=== PATIENT | male | born 1960 | race Caucasian/White ===

== ENCOUNTER 2021-05-01 05:38 | Emergency (ER) | payer OTHER, BC, SELFPAY ==
[2021-05-01] VITALS (8 sets, daily range): BP systolic 132–161; BP diastolic 76–101; PULSE 60–73; RESP 9–19; TEMP 36.6; O2SAT 96–100
--- NOTE | ~2021-05-01 | XR_ITS ---
EXAMINATION: XR chest 1V portable EXAM DATE: 05/01/2021 07:39 INDICATION: Shoulder pain, Radiates Up Neck Into Back Of Skull. TECHNIQUE: Portable AP frontal chest x-ray was obtained. There is no prior study for comparison. FINDINGS: The lungs are clear. There are no pleural effusions. Cardiomediastinal silhouette is norm al. There is no pneumothorax suspected. 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 IMPRESSION: No acute cardiopulmonary findings. Reviewed, dictated and finalized at location A.
--- NOTE | 2021-05-01 07:26 | ED.GENADULT ---
HPI - General Adult General Chief complaint: Unspecified Stated complaint: right shoulder pain, head pain Time Seen by Provider: 05/01/21 07:25 Source: patient and family Mode of arrival: ambulatory Limitations: no limitations History of Present Illness HPI narrative: Patient 60 years old white male presents with right shoulder pain, right upper back pain radiating to right side of neck. Woke him up at 3 AM. Patient had 3 rotator cuff surgery bilaterally. History of intermittent pain at that area. Patient had a flu vaccine 4 days prior to that at the same side. Patient denies any fever, chills, nausea, vomiting, chest pain, shortness of breath, headache. Related Data Home Medications Medication Instructions Recorded Confirmed metformin mg 05/01/21 simvastatin mg 05/01/21 Allergies Allergy/AdvReac Type Severity Reaction Status Date / Time No Known Allergies Allergy Unknown Verified 05/01/21 05:50 Review of Systems Review of Systems: CONSTITUTIONAL: Denies fever, chills, or sweats. EYES: Denies visual changes, redness, or discharge. ENT: Denies rhinorrhea, congestion, sore throat, or otalgia. CARDIOVASCULAR: Denies chest pain, palpitations, or edema. RESPIRATORY: Denies cough or dyspnea. GASTROINTESTINAL: Denies abdominal pain, nausea, vomiting, or diarrhea. GENITOURINARY: Denies dysuria or hematuria. SKIN: Denies rash or itching. MUSCULOSKELETAL: Denies back pain, joint pain, or myalgia. NEUROLOGIC: Denies headache, numbness, or weakness. PSYCHIATRIC: Denies anxiety or depression. [facility] Family History Family History Father Hypertension Family history of diabetes mellitus in first degree relative Family history of coronary artery disease Family history of kidney disease Mother Family history of diabetes mellitus in first degree relative Family history of malignant neoplasm of ovary Social History Social History Smoking end date: 07/20/03 Alcohol intake: current Exam Narrative: General appearance: Well-developed, well-nourished Skin: Normal color Head: Normocephalic, nontraumatic Eyes: Clear conjunctiva ENT: Oropharynx normal, ears normal, nose normal Neck: Supple, nontender Chest and respiratory: Airway patent, no respiratory distress, no accessory muscle use Heart: Regular rate/rhythm Abdomen: Soft, nontender, no organomegaly, quiet bowel sounds Vascular: Normal peripheral pulses, normal capillary refill. Musculoskeletal: Diffuse tenderness of the right upper back, right shoulder, pain with moving right upper extremity. No swelling, no rash, no mass. Neurologic: Alert and oriented ?3, [employer] is normal as tested, no gross motor deficit Course Course Emergency Course: Improving Vital Signs Vital signs: Vital Signs Temperature 36.6 C 05/01/21 05:47 Pulse Rate 65 05/01/21 05:47 Respiratory Rate 12 05/01/21 05:47 Blood Pressure 149/89 H 05/01/21 05:47 Pulse Oximetry 100 05/01/21 05:47 Temperature 36.6 C 05/01/21 05:47 Pulse Rate 65 05/01/21 05:47 Respiratory Rate 12 05/01/21 05:47 Blood Pressure 149/89 H 05/01/21 05:47 Pulse Oximetry 100 05/01/21 05:47 Medical Decision Making [facility] Narrative Medical decision making narrative: Musculoskeletal is my concern Vital Signs Vital Signs: Vital Signs Temperature 36.6 C 05/01/21 05:47 Pulse Rate 65 05/01/21 05:47 Respiratory Rate 12 05/01/21 05:47 Blood Pressure 149/89 H 05/01/21 05:47 Pulse Oximetry 100 05/01/21 05:47 Temperature 36.6 C 05/01/21 05:47 Pulse Rate 65 05/01/21 05:47 Respiratory Rate 12
--- NOTE | 2021-05-01 07:27 | ECG_ITS ---
Measurements Intervals [place] Rate: 63 P: 27 WA: 145 QRS: -15 QRSD: 105 T: 15 QT: 404 QTc: 414 Interpretive Statements SINUS RHYTHM MINIMAL Q WAVES- INFERIOR LEADS BASELINE ARTIFACT- I, II, III, AVR, AVL, AVF, V1-V6 BORDERLINE ECG Electronically Signed On 05-01-2021 8:08:55 CDT by Siva Starkey D.O.
[2021-05-01 08:11] LABS: Basophils Percent Auto 0.5 % (0.2-1.2); Eosinophils Absolute Auto 0.1 K/mm3 (0-0.3); Eosinophils Percent Auto 1.7 % (0-4.4); Hematocrit 45.9 % (42.0-52.0); Hemoglobin 15.6 g/dL (14.0-18.0); Immature Granulocyte Absolute 0.04 K/mm3 (0.00-0.031); Immature Granulocyte Percent A 0.5 % (0-0.5); Lymphocytes Absolute Auto 1.64 K/mm3 (0.9-3.2); Lymphocytes Percent Auto 20.5 % (18.3-44.2); Mean Corpuscular Hemoglobin 32.6 pg (26-34); Mean Corpuscular Volume 95.8 fl (80-100); Mean Platelet Volume 10.9 fl (7.4-10.4); Monocytes Absolute Auto 0.6 K/mm3 (0.1-0.6); Monocytes Percent Auto 7.6 % (2.6-8.5); Neutrophils Absolute Auto 5.5 K/mm3 (1.3-6.7); Neutrophils Percent Auto 69.2 % (45.5-73.1); Platelet Count Result 188 k/mm3 (150-375); Red Blood Count 4.79 M/mm3 (4.6-6.20); Red Cell Distribution Width 12.5 % (11.5-14.5)
[2021-05-01 08:24] LABS: Alanine Aminotransferase 24 U/L (4-50); Albumin Level 4.7 g/dL (3.5-5.1); Alkaline Phosphatase 80 U/L (38-126); Anion Gap 6 mmol/L (8-16); Aspartate Amino Transferase 26 U/L (17-59); Bilirubin,Total 0.6 mg/dL (0.2-1.3); Blood Urea Nitrogen 15 mg/dL (9-20); Calcium 9.9 mg/dL (8.4-10.2); Carbon Dioxide 27 mmol/L (22-30); Chloride 108 mmol/L (98-107); Estimated CRCL calculation 76 ml/min; Estimated Glomerular Filt Rate > 60; Glucose 139 mg/dL (65-110); Potassium 4.6 mmol/L (3.4-5.0); Sodium 141 mmol/L (137-145)
[2021-05-01 08:36] LABS: Troponin I < 0.012 ng/mL (0.000-0.034)
[2021-05-01] MEDS: ONDANSETRON INJ 4 MG/2 ML VIAL IV PUSH (08:37)
[2021-05-01] MEDS: MORPHINE SULFATE (*CRX) 4 MG/ML INJ IV PUSH (08:38)
== END 2021-05-01 09:43 | disposition home or self-care (01) ==
PROVIDERS: Emergency Provider Emergency Medicine; PCP Nurse Practitioner Family
DX: M54.6 Pain in thoracic spine (principal); Z87.891 Personal history of nicotine dependence
CPT/HCPCS: 36415; 71045; 80053; 84484; 85025; 93005; 96374; 96375; 99284; J2270; J2405

== ENCOUNTER 2022-03-21 09:04 | Outpatient (CLI) | payer BC, SELFPAY | END 2022-03-21 09:05 | disposition home or self-care (01) | LOC: ANHAUDIO 09:05 | PROVIDERS: PCP Nurse Practitioner Family; Visit Provider Nurse Practitioner Family | DX: H90.6 Mixed conductive and sensorineural hearing loss, bilateral (principal) | CPT/HCPCS: 92557; 92567 ==

== ENCOUNTER 2022-04-25 09:00 | Outpatient (RCR) | payer BC, SELFPAY | END 2022-04-25 23:59 | disposition home or self-care (01) | LOC: ANHAUDIO 09:00 | PROVIDERS: PCP Nurse Practitioner Family; Visit Provider Nurse Practitioner Family | DX: Z46.1 Encounter for fitting and adjustment of hearing aid (principal) | CPT/HCPCS: 99199; V5261; V5264 ==

== ENCOUNTER 2024-03-24 15:30 | Outpatient (RCR) | payer SELFPAY | END 2024-03-24 23:59 | disposition home or self-care (01) | LOC: ANHAUDIO 15:30 | PROVIDERS: PCP Nurse Practitioner Family | DX: Z46.1 Encounter for fitting and adjustment of hearing aid (principal) | CPT/HCPCS: 99199; V5264 ==

== ENCOUNTER 2024-06-08 12:00 | Outpatient (RCR) | payer SELFPAY | END 2024-06-08 23:59 | disposition home or self-care (01) | LOC: ANHAUDIO 12:00 | PROVIDERS: PCP Nurse Practitioner Family; Visit Provider Internal Medicine | DX: Z46.1 Encounter for fitting and adjustment of hearing aid (principal) | CPT/HCPCS: V5264 ==

== ENCOUNTER 2024-11-01 07:06 | Outpatient (CLI) | payer MEDICARE, SELFPAY ==
--- NOTE | ~2024-11-01 | US_ITS ---
Ultrasound of the Abdominal Aorta INDICATION: Nicotine dependence TECHNIQUE: Grayscale, color Doppler, and pulsed Doppler images of the aorta and common iliac arteries were obtained. COMPARISON: None. FINDINGS: Maximum vascular dimensions are as follows: Proximal aorta: 2.0 cm Mid aorta: 1.5 cm Distal aorta: 1.4 cm Right common iliac artery: 1.2 cm Left common iliac artery: 0.9 cm There is no evidence of abdominal aortic aneurysm. IMPRESSION: No aortic aneurysm. Reviewed, dictated and finalized at location . IMPRESSION: No aortic aneurysm.
--- OUTSIDE RECORDS SUMMARY | 2024-11-01 07:13 | XMS_ITS | CONTINUITY OF CARE DOCUMENT ---
Author Name dread [place] Address Unknown Organization [facility] Address [address] [place] [address] [address] [place] [address] Phone [phone] Care Team Providers Care Millwright Instructor Name Role Phone Tabatha Corrales MD Unavailable Tabatha Corrales MD Unavailable INSURANCE PROVIDERS Payer name Policy type / Coverage type [place] red democrat ID [facility] [id number]
--- OUTSIDE RECORDS SUMMARY | 2024-11-01 07:13 | XMS_ITS | Clinical Summary ---
Author Organization [facility] Address [address] [place] [id number] Care Team Providers Care Staffing Executive Name Role Phone Unavailable Primary Care Provider Unavailabl e Social History Tobacco Use Types Packs/Day Years Used Date Smoking Tobacco: Never Assessed Sex and Gender Information Value Date Recorded Sex Assigned at Not on file Legal Sex Male 8:09 PM CDT Gender Identity Not on file Sexual Orientation Not on file Plan of Treatment Health Maintenance Due Date Last Done Comments Colorectal Cancer Screening Colonoscopy (10 Years) 1959 Hepatitis C 1977 DTaP, Tdap and Td Vaccines ( 1 - Tdap) 1978 Zoster Vaccines (1 of 2) 2009 COVID-19 Vaccine ( - 2023-2 5 season) 2024 Pneumococcal Vaccine: 50+ Ye ars (1 of 1 - PCV) 2024 RSV Immunization or 60+ Years (1 - 1-dose 75+ series) 2034 Meningococcal B Vaccine Aged Out No l onger eligible based on patient's age to complete this topic Meningococcal Vaccine Aged Out No franko marjorie eligible based on patient's age to complete this topic Pneumococcal Vaccine: Pediat rics (0 to 5 Years) and At-Risk Patients (6 to 49 Years) Aged Out No longer eligible b ased on patient's age to complete this topic RSV Immunizations Under 20 Months Aged Out No longer eligible based on patient's age to complete this topic
== END 2024-11-01 07:07 | disposition home or self-care (01) ==
PROVIDERS: PCP Internal Medicine; Visit Provider Internal Medicine
DX: Z13.6 Encounter for screening for cardiovascular disorders (principal); Z87.891 Personal history of nicotine dependence
CPT/HCPCS: 76706

== ENCOUNTER 2024-12-06 00:13 | Day surgery (SDC) | payer MEDICARE, SELFPAY ==
[2024-11-28 10:41] VITALS: BMI 26.0
--- OUTSIDE RECORDS SUMMARY | 2024-12-06 00:16 | XMS_ITS | Clinical Summary ---
Author Organization [facility] Address [address] [place] [id number] Care Team Providers Care Ict Sales Representative Name Role Phone Unavailable Primary Care Provider [...] Td Vaccines ( 1 - Tdap) 1978 Pneumococcal Vaccine: 50+ Ye ars (1 of 1 - PCV) 2009 Zoster Vaccines (1 of 2) 2009 COVID-19 Vaccine ( - 2023-2 5 season) 2024 RSV Immunization or 60+ Years (1 [...]
[2024-12-06 07:03] VITALS: BP 166/75; PULSE 56; RESP 18; TEMP 36.1; O2SAT 100
--- NOTE | 2024-12-06 07:14 | WPDANESEPPF ---
Anes - Initial Pre Proc Eval Procedure: Operation Date: 12/06/24 08:00 Proposed Procedures p Screening Colonoscopy - Nazario Son MD Date/Time: 12/06/24 07:14 Surgeon: Nazario Son MD Pre Op Diagnosis: Screening Patient Data Age: 64 Gender: M Height: 1.75 m Weight: 75.1 kg Last Vital Signs Temp 36.1 C L 12/06/24 07:03 Pulse 56 L 12/06/24 07:03 Resp 18 12/06/24 07:03 BP 166/75 H 12/06/24 07:03 Pulse Ox 100 12/06/24 07:03 O2 Del Method Room Air 12/06/24 07:03 Allergies Allergy/AdvReac Type Severity Reaction Status Date / Time No Known Allergies Allergy Unknown Verified 12/06/24 07:02 Home Medications Medication Instructions Recorded Confirmed Type metformin 500 mg tablet 500 mg PO BID 05/01/21 11/28/24 History simvastatin 20 mg tablet 20 mg PO QPM 05/01/21 11/28/24 History Patient hx anesthesia problems: none Family hx anesthesia problems: none Results Review: All pre-operative results and documents have been reviewed as part of the pre-operative evaluation. [facility] Past Medical History Medical History (Updated 12/06/24 @ 07:31 by Isaac Black DO) Diabetes type 2, controlled Hyperlipidemia Family History Family History Father Hypertension Family history of diabetes mellitus in first degree relative Family history of coronary artery disease Family history of kidney disease Mother Family history of diabetes mellitus in first degree relative Family history of malignant neoplasm of ovary Social History Social History (Updated 12/06/24 @ 07:31 by Isaac Black DO) Smoking packs per day: 4 Smoking cigarettes per day: 80.0 Years smoked: 16 Smoking pack-years: 64.00 Smoking status: Former smoker Tobacco type: cigarettes Smoking end date: 07/20/03 Alcohol intake: current Alcohol use details: 8/day Living arrangements: with family Spiritual care concerns: No Anes - Eval Final PreProcedure Day of Procedure 12/06/24 07:14 Patient weight: normal Heart: regular rate and rhythm Lungs: clear to auscultation and normal air movement Airway: Mallampati scale class II and special considerations poor dentition Neurological: alert and oriented Last oral intake: >/= 8 hours ASA classification: III Emergent: no Anesthetic plan: proceed Anesthesia type and monitoring: general GIVS and standard monitoring Results Review: All pre-operative results and documents have been reviewed as part of the pre-operative evaluation. Informed Consent: The patient's anesthetic plan and its attendant risks and benefits were discussed with the patient/family/POA. Questions were solicited and answers provided to the satisfaction of the patient/family/POA.
[2024-12-06] MEDS: LACTATED RINGERS 1,000 ML 150 ML IV CONT (07:18)
[2024-12-06 07:22] LABS: Glucose Point of Care 118 mg/dl (65-105)
--- NOTE | 2024-12-06 07:55 | PM.HPGS ---
History of Present Illness History of Present Illness Consent: Risks, benefits, and alternatives have been discussed and questions answered. Patient agrees to proceed with procedure. Chief complaint: Screening Narrative: Coy Marcial is a 64 year old male here for screening colonoscopy, last one 11 years ago Review of Systems Review of Systems: All systems reviewed & are unremarkable except as noted in HPI and below PMFSH Past Medical History Medical History (Updated 12/06/24 @ 07:56 by Nazario Son MD) Colon cancer screening Diabetes type 2, controlled Hyperlipidemia Family History Family History Father Hypertension Family history of diabetes mellitus in first degree relative Family history of coronary artery disease Family history of kidney disease Mother Family history of diabetes mellitus in first degree relative Family history of malignant neoplasm of ovary Social History Social History (Updated 12/06/24 @ 07:31 by Isaac Black DO) Smoking packs per day: 4 Smoking cigarettes per day: 80.0 Years smoked: 16 Smoking pack-years: 64.00 Smoking status: Former smoker Tobacco type: cigarettes Smoking end date: 07/20/03 Alcohol intake: current Alcohol use details: / Living arrangements: with family Spiritual care concerns: No Meds Home Medications and Allergies Home Medications Medication Instructions Recorded Confirmed Type metformin 500 mg tablet 500 mg PO BID 05/01/21 11/28/24 History simvastatin 20 mg tablet 20 mg PO QPM 05/01/21 11/28/24 History Allergies Allergy/AdvReac Type Severity Reaction Status Date / Time No Known Allergies Allergy Unknown Verified 12/06/24 07:02 Vital Signs Vital Signs - 24 hr 12/06/24 07:03 Temperature 97 F L Pulse Rate 56 L Respiratory Rate 18 Blood Pressure 166/75 H Pulse Oximetry 100 Oxygen Delivery Room Air Exam Const: General: comfortable and no acute distress HENMT: Face/Nose/Sinus: Normal nares present Eyes: General: appearance normal, both eyes and all related structures Neck: Neck: no JVD Resp: Auscultation: clear to auscultation bilaterally Cardio: Rate: regular rate Rhythm: regular rhythm GI: Inspection: non-distended GI Palp: Yes Soft to palpation Skin: General skin exam: normal color Neuro: General: gait normal Speech: normal speech Extrem: General: normal to inspection Psych: Mental Status: mental status grossly normal Assessment and Plan Assessment and plan (1) Colon cancer screening: Code(s): Z12.11 - Encounter for screening for malignant neoplasm of colon Status: Acute Assessment and Plan: colonoscopy
[2024-12-06 08:08] VITALS: BP 144/79; PULSE 70; RESP 28; O2SAT 99
[2024-12-06 08:18] VITALS: BP 151/80; PULSE 57; RESP 17; O2SAT 100
[2024-12-06 08:28] VITALS: BP 152/82; PULSE 60; RESP 16; O2SAT 100
== END 2024-12-06 08:31 | disposition home or self-care (01) ==
PROVIDERS: PCP Internal Medicine; Referring Provider Internal Medicine; Visit Provider Internal Medicine Gastroenterology
PROC: 0DJD8ZZ Inspection of Lower Intestinal Tract, Via Natural or Artificial Opening Endoscopic (ICD-10-PCS; CPT 45378; principal; 2024-12-06 08:00)
DX: Z12.11 Encounter for screening for malignant neoplasm of colon (principal); D12.5 Benign neoplasm of sigmoid colon; K57.30 Diverticulosis of large intestine without perforation or abscess without bleeding; K64.8 Other hemorrhoids; E11.9 Type 2 diabetes mellitus without complications; Z87.891 Personal history of nicotine dependence
CPT/HCPCS: 45385; 82948; 88305; J2704; J7120